=== PATIENT | female | born 2000 | race Caucasian/White ===

== ENCOUNTER 2019-01-22 14:41 | Emergency (ER) | payer BC ==
[2019-01-22 15:12] VITALS: BP 117/96
--- NOTE | 2019-01-22 17:47 | EDPHY ---
H & P Stated Complaint: bloody diarrhea post taking amoxicillin for resp issues Time Seen by Provider: 01/22/19 17:47 - Personal History LMP (Females 10-55): Extended Cycle BCP/Inj Current Tetanus Diphtheria and Acellular Pertussis (TDAP): Yes - Medical/Surgical History Hx Asthma: No Hx Chronic Respiratory Disease: No Hx Diabetes: No Hx Cardiac Disease: No Hx Renal Disease: No Hx Cirrhosis: No Hx Alcoholism: No Hx HIV/AIDS: No Hx Splenectomy or Spleen Trauma: No Other PMH: tonsillectomy - Social History Smoking Status: Never smoked Constitutional: Initial Vital Signs Temperature (C) 37.1 C 01/22/19 15:09 Heart Rate 123 H 01/22/19 15:09 Respiratory Rate 18 01/22/19 15:09 Blood Pressure 117/96 H 01/22/19 15:09 O2 Sat (%) 95 01/22/19 15:09 O2 Delivery Mode Room Air Allergies/Adverse Reactions: No Known Allergies Allergy (Unverified 01/22/19 15:08) Home Medications: Medication Instructions Recorded AMOXICILLIN 01/22/19 Medical Decision Making ED Course/Re-evaluation: CHIEF COMPLAINT: Nausea, vomiting, diarrhea HISTORY OF PRESENT ILLNESS: The patient is a 18 y/o female complaining of nausea, vomiting, and diarrhea onset 2 days ago. Last Tuesday, 6 days ago, she started taking Amoxicillin for a sinus infection. Starting 2 days ago she started having diarrhea every 15 minutes. Last night she had one episode of vomiting and second episode of vomiting this afternoon. In addition to these symptoms she also has abdominal cramps which are alleviated after having a bowel movement. No fever, headache, body aches, lightheadedness, chest pain, heart palpitations, shortness of breath , cough, urinary complaints, numbness, paresthesias. REVIEW OF SYSTEMS: A comprehensive 10 system review of systems is otherwise negative aside from elements mentioned in the history of present illness and medical decision making. PHYSICAL EXAM: HR, BP, O2 Sat, RR. Temp noted General Appearance: Alert, well hydrated, appropriate, and non-toxic appearing. Head: Atraumatic without scalp tenderness or obvious injury Eyes: Pupils equal, round, reactive to light and accommodation, EOMI, no trauma , no injection. Ears: Clear bilaterally, no perforation, normal landmarks Nose: Atraumatic, no rhinorrhea, clear. Throat: There is no erythema or exudates, no lesions, normal tonsils, mucus membranes moist. Neck: Supple, 2+ carotid upstroke, nontender, no lymphadenopathy. Respiratory: No retractions, no distress, no wheezes, and no accessory muscle use. Lungs are clear to auscultation bilaterally. Cardiovascular: Regular rate and rhythm, no murmurs, rubs, or gallops. Bilateral carotid, radial, dorsalis pedis, and posterior tibial pulses intact. Good capillary refill all extremities. Gastrointestinal: Abdomen is soft, nontender, non-distended, no masses, no rebound, no guarding, no peritoneal signs. Musculoskeletal: Normal active ROM of all extremities, atraumatic. Neurological: Alert, appropriate, and interactive. The patient has normal DTRs and non-focal cranial nerves, motor, sensory, and cerebellar exam. Skin: No rashes, good turgor, no nodules on palpation. Past medical history: Denies Past surgical history: Tonsillectomy Family history: Denies Social history: Student at , single, originally from [facility] DIAGNOSTICS/PROCEDURES/CRITICAL CARE TIME: Not indicated. DIFFERENTIAL DIAGNOSIS: The differential diagnosis for the patient's nausea, vomiting, and diarrhea included but was not limited to gastroenteritis, gastritis, appendicitis, and medication side effect. MEDICAL DECISION MAKING: The patient is a 18 y/o female presenting with nausea, vomiting, and diarrhea onset 2 days ago after starting amoxicillin 6 days ago. She has a normal physical exam. I suspect that the patient's symptoms are due to the amoxicillin. Labs ordered; 2L IV NS and 4mg IV Zofran administered. Imaging studies are not indicated at this time. 1923: Reassessed patient, she has been unable to provide a stool sample but is feeling better. I have advised her to drop off the stool sample to the lab when she can. I have also prescribed her Zofran. Return precautions provided; patient is comfortable with this plan. - Data Points Medications Given: Discontinued Medications Sodium Chloride (Ns) 1,000 mls @ 0 mls/hr IV EDNOW ONE; Wide Open PRN Reason: Protocol Stop: 01/22/19 17:56 Last Admin: 01/22/19 18:10 Dose: 1,000 mls Sodium Chloride (Ns) 1,000 mls @ 0 mls/hr IV EDNOW ONE; Wide Open PRN Reason: Protocol Stop: 01/22/19 17:56 Last Admin: 01/22/19 18:10 Dose: 1,000 mls Ondansetron HCl (Zofran) 4 mg IVP EDNOW ONE Stop: 01/22/19 17:56 Last Admin: 01/22/19 18:10 Dose: 4 mg Departure - Departure Disposition: Home, Routine, Self-Care Clinical Impression: Diarrhea Qualifiers: Diarrhea type: unspecified type Qualified Code(s): R19.7 - Diarrhea, unspecified Nausea & vomiting Qualifiers: Vomiting type: unspecified Vomiting Intractability: non-intractable Qualified Code(s): R11.2 - Nausea with vomiting, unspecified Condition: Good Instructions: Acute Nausea and Vomiting (ED), Acute Diarrhea (ED) Additional Instructions: 1. Stop taking Amoxicillin. 2. Take Zofran as prescribed. 3. Return the stool sample to the lab when you can. 4. Follow-up with your primary doctor within 72 hours. 5. Return to the Emergency Department for fever, chest pain, shortness of breath , increasing pain or other worsening of condition. Referrals: JUD SWAN [Other] - As per Instructions [facility],. [Clinic] - As per Instructions Report Scribed for: Garrison Patterson Report Scribed by: Cristina Alfonso Date of Report: 01/22/19 Time of Report: 18:05
[2019-01-22] MEDS ORDERED: ONDANSETRON 4 MG/2 ML VIAL IVP ONE (17:55)
[2019-01-22] MEDS ORDERED: NS 1,000 ML IV ONE ×2 (17:55)
[2019-01-22] MEDS ORDERED: ONDANSETRON 4MG PREPACK#2 BTL TAKEHOME ONE (19:29)
== END 2019-01-22 19:40 | disposition home or self-care (01) ==
DX: R19.7 Diarrhea, unspecified (principal); R11.2 Nausea with vomiting, unspecified; E86.9 Volume depletion, unspecified; Z79.2 Long term (current) use of antibiotics
CPT/HCPCS: 82435-PO; 82565-PO; 82947-PO; 84132-PO; 84295-PO; 84520-PO; 85014-ER; 96374; J2405